=== PATIENT | male | born 2000 | race Caucasian/White ===

== ENCOUNTER 2024-05-14 15:56 | Emergency (ER) | payer SELFPAY ==
[2024-05-14 15:58] VITALS: BP 134/83
[2024-05-14] MEDS: TORADOL 30 MG IV (17:40)
[2024-05-14 17:42] VITALS: BP 115/72
[2024-05-14 17:43] VITALS: BMI 28.5
--- NOTE | 2024-05-14 17:57 | ED.GENMED ---
History of Present Illness
General
Chief Complaint: Chest Pain
Source: patient
Exam Limitations: none
Time Seen by Provider: 05/14/24 17:02
Nursing documentation reviewed up to this point in time: agreed with
History of Present Illness
History of Present Illness:
This is a 24-year-old male who has no significant past medical history save for occasional GERD. He takes no medicines on a daily basis.
He states this morning, shortly after waking up he noticed some right lateral chest pain that began around 9/10 AM. Initially mild in nature, somewhat of an ache, nonradiating and no other associated symptoms. Right lateral chest pain seems worse
with movement, mildly worsened with taking a deep breath.
He works for [employer], picking up and transporting individuals. While at work this afternoon he admits to lifting someone over 100 pounds and initially did not notice any increased right lateral chest pain but shortly after
lifting then noticed increase in the pain that now seems to wrap around to his right scapular region. He denies neck pain nor abdominal pain, no shoulder pain, no weakness or numbness. No coughing or shortness of breath. He has had no leg pain or
swelling, no nausea. No fever no chills. No recent URI nor GI illnesses.
He has resumed exercise, lifting a week and a half ago and was doing upper body lifting exercises 2 days ago without insightful injury.
No recent travel.
No history of similar episodes in the past.
He has not taken anything for discomfort.
Past History
Past History
ED Past Medical History: GERD
ED Past Surgical History: None
Social History
Tobacco: Smoker
Alcohol: Occasional
Drug: None
Personal: Single
Living: with family
Employment: Employed
Family History
Family History: Unable to obtain (Patient unsure as to his family history. He states his family is 'all messed up.' No definitive history of early CAD nor thromboembolism.)
Phy Exam
Physical Exam
Physical Exam:
GENERAL: 24-year-old male appears his stated age, bright and alert, pleasant, appears in no acute distress. Easily communicative. No respiratory distress. He is noted to intermittently burp. Patient states his burping is somewhat habitual and
more of an issue when he is nervous. Burping does not aggravate nor relieve his right sided chest discomfort.
EYE: anicteric
NECK: Supple, nontender, no meningismus, no significant adenopathy.
ENT: oral mucosa is moist. No rhinorrhea.
CARDIAC: Regular rate and rhythm. no murmur. No rub. Mild tenderness right lateral superior chest wall. There is no crepitus nor palpable bony abnormality. No tenderness to the posterior thorax, no tenderness to the scapular region nor shoulder.
LUNGS: no acute respiratory distress, mildly decreased breath sounds right superiorly, no rales or rhonchi no wheezing.
ABDOMEN: Soft, nondistended, without focal tenderness, no r/g, no cvat. normoactive BS.
NEUROLOGICAL: Alert and oriented x3, no focal neuro deficits. Gait is steady.
SKIN: Warm and dry, normal color, skin intact. No rash.
MUSCULOSKELETAL: No C/C/E. peripheral pulses are full and equal b/l. No palpable tenderness.
PSYCH: Normal and appropriate interaction.
Scores
Heart Score for Chest Pain Patients
STEMI patient?: Not applicable
Course
Orders/Labs/Results
Orders:
Orders
05/14/24 16:04
EKG [Electrocardiogram (*1)] Urgent
Reason for Study: Chest Pain
EKG- Treatment ONCE
05/14/24 17:32
Ketorolac [Toradol] 30 mg IV NOW STA
CR Chest - 2 Views Urgent
Comment:
Reason For Exam: acute, pleuritc R upper CP
05/14/24 18:12
Azithromycin [Zithromax] 500 mg PO NOW STA
Vital Signs
Initial and Last Documented VS:
Initial Vital Signs
Temp Pulse Resp BP Pulse Ox
98.2 F 91 18 134/83 99
05/14/24 15:58 05/14/24 15:58 05/14/24 15:58 05/14/24 15:58 05/14/24 15:58
Last Documented Vital Signs
Temp Pulse Resp BP Pulse Ox
98.2 F 84 19 136/75 99
05/14/24 15:58 05/14/24 18:15 05/14/24 18:15 05/14/24 18:00 05/14/24 15:58
MDM/Problems Addressed
Differential Diagnosis Includes:
Patient presents with acute right-sided pleuritic type pain.
He has recently resumed exercise, lifting along with heavy lifting on a near daily basis at work.
Although no insightful injury, history and exam appears most consistent with musculoskeletal type pain. Other consideration is pleurisy, pneumothorax, pneumonia.
He has no known risk factors for thromboembolism nor CAD. Nothing in history nor exam to suspect pericarditis.
He does have history of GERD generally well-controlled and current right-sided chest pain is admittedly quite different from his episodes of GERD.
Abdominal exam is unremarkable, nontender, nothing to suggest biliary colic/intra-abdominal pathology.
EKG shows sinus arrhythmia otherwise unremarkable.
Will give an IV dose of Toradol and will check chest x-ray.
*Radiology
Radiology exam reviewed: radiology read reviewed (Chest x-ray shows patchy/linear infiltrate right upper lobe. No pneumothorax.)
*Pulse Oximetry
Patient hypoxic: no
*EKG
Interpreted by ED Provider?: Yes
Comparison EKG: no comparison EKG present
Rate: normal
Rhythm: sinus arrhythmia
[place]: normal axis
Interval: normal interval
QRS Pattern: normal QRS
Ischemia: no ischemia
*Copy Reader Interpretation
Rate: normal
Interpretation: normal
Rhythm: sinus arrhythmia
*Critical Care Note
Total Time (30-74mins, 75-104mins- exclusive of procedures): Not Applicable
Update Note
Update Note:
05/14/2024 1825 PM
Patient feeling improved after IV Toradol.
Chest x-ray shows focal infiltrate right upper lobe. No pneumothorax.
He does admit to feeling somewhat fatigued over the past week or 2 but has not had a cough, nor fever.
Will treat community-acquired pneumonia/walking pneumonia with a course of Zithromax.
Recommend NSAIDs or Tylenol as needed for discomfort.
Discussed importance of remaining well-hydrated on a daily basis.
Patient has been encouraged to discontinue cigarettes.
He does not have a primary care physician and currently lacks healthcare coverage. He attempted to sign up for health insurance but due to his income, insurance premium was approximately $600 a month.
Due to his current income he is not a candidate for our free clinic but will refer to our family practice clinic and recommend he follow-up/discuss payment plan if offered. Encouraged to follow-up especially if chest pain does not resolve with
course of antibiotic.
Return precautions discussed.
ED Attending Note
-
Portions of this chart may have been created with voice recognition software.� Occasional wrong word or��sound alike� substitutions may have occurred due to the inherent limitations of voice recognition software.
Discharge Plan
Departure
Patient Disposition: Home (Routine Discharge)
Date of Disposition: 05/14/24
Time of Disposition: 18:27
Patient with high blood pressure during this ER visit?: No
Condition: Good
Discharge Problem:
Community acquired pneumonia, Right-sided chest pain
Instructions: Community-acquired pneumonia in adults, Quitting Smoking ED
Prescriptions:
New
azithromycin [Zithromax] 500 mg tablet
500 mg PO DAILY Qty: 2 0RF
Referrals:
[facility] [Provider Group] - Call in 1-3 days for appt
Interventions
Interventions:
*Risk Screen - Suicide Last Done: 05/14/24 15:58
*General Assessment Last Done: 05/14/24 15:58
*Neglect/Abuse Screening Last Done: 05/14/24 15:58
*ED COVID-19 Vaccine History Last Done: 05/14/24 15:58
ED- Cardiac Assessment Last Done: 05/14/24 17:21
Discharge Date and Time
Print Language: SAUDI ARABIAN
[2024-05-14 18:00] VITALS: BP 136/75
[2024-05-14] MEDS: ZITHROMAX 500 MG PO (18:21)
== END 2024-05-14 18:45 | disposition home or self-care (01) ==
LOC: EMR 15:56
PROVIDERS: EMERGENCY PHYSICIAN Emergency Medicine
DX: J18.9 Pneumonia, unspecified organism (principal); K21.9 Gastro-esophageal reflux disease without esophagitis; F17.200 Nicotine dependence, unspecified, uncomplicated; I48.91 Unspecified atrial fibrillation
CPT/HCPCS: 99283; 96374; 71046; 93005

== ENCOUNTER 2024-11-10 22:59 | Emergency (ER) | payer SELFPAY ==
[2024-11-10 23:01] VITALS: BP 146/75
[2024-11-10 23:16] LABS: Urine Albumin Negative (Neg - Trace); Urine Bilirubin Negative (Negative); Urine Character Clear (Clear); Urine Color Yellow; Urine Glucose Negative (Negative); Urine Ketone Negative (Negative); Urine Leukocyte 2+ (Negative); Urine Nitrite Negative (Negative); Urine Occult Blood Negative (Negative); Urine Urobilinogen Negative (Neg - 1+)
[2024-11-10 23:28] LABS: Urine Squamous Cell 0-2 /LPF (Few)
[2024-11-10 23:29] LABS: Urine Red Blood Cell 0-2 /HPF (0-2); Urine White Cell 30-40 /HPF (0-5)
[2024-11-10 23:30] LABS: Urine Bacteria Few (Negative)
[2024-11-10 23:32] LABS: Urine Yeast Few (Negative)
[2024-11-11 00:51] LABS: Glucose - Point of Care 106 mg/dl (70-99)
[2024-11-11] MEDS: OMNICEF 300 MG PO (00:53)
--- NOTE | 2024-11-11 01:04 | ED.GENMED ---
History of Present Illness
General
Chief Complaint: Flank Pain
Source: patient
Exam Limitations: none
Time Seen by Provider: 11/11/24 00:09
Nursing documentation reviewed up to this point in time: agreed with
History of Present Illness
History of Present Illness:
24-year-old male presenting to the emergency department today with concerns of intermittent urinary symptoms over the past month or so was treated with an antibiotic, Keflex a few weeks ago after getting an online assessment. Urine was never tested
at the time. Seem to have some improvement of symptoms at the time. Has had intermittent flank pain but denies any currently or over the last few days. No fevers no nausea vomiting. Did notice some burning with his urination today.
Past History
Past History
ED Past Medical History: GERD
ED Past Surgical History: None
Social History
Tobacco: Smoker
Alcohol: Occasional
Drug: None
Personal: Single
Living: with family
Employment: Employed
Family History
Family History: Unable to obtain (Patient unsure as to his family history. He states his family is 'all messed up.' No definitive history of early CAD nor thromboembolism.)
Review of Systems
Review of Systems
Allergies reviewed?: Yes
All Other Systems: ROS reviewed and negative except as documented in HPI and ROS
Phy Exam
Physical Exam
Physical Exam:
GENERAL: Alert , in no apparent distress
EYE: pupils equal and reactive
NECK: Supple, no significant adenopathy.
ENT: o/p clr, mmm.
CARDIAC: Regular rate and rhythm .
LUNGS: Clear breath sounds bilaterally, no acute respiratory distress, no wheezes/rales/rhonchi
ABDOMEN: Soft, without focal tenderness, no r/g, no cvat
NEUROLOGICAL: Alert and oriented, no focal neuro deficits
SKIN: Warm and dry, skin intact.
MUSCULOSKELETAL: No edema, well perfused.
PSYCH: Normal and appropriate interaction.
Course
Orders/Labs/Results
Orders:
Orders
11/10/24 23:11
Urinalysis Reflex To Culture Urgent
Date Specimen was Collected: 11/10/24
Time Specimen was Collected: 23:09
Urine Microscopic Reflex Cult Urgent
Urine Culture Urgent
JERZY Source: U
Specimen Description:
Date Specimen was Collected: 11/10/24
Time Specimen was Collected: 23:09
11/11/24 00:49
Add On- LAB Urgent
Tests Added?: GC/chlamydia PCR
Bedside Glucose- Treatment ONCE
Cefdinir [Omnicef] 300 mg PO NOW STA
Abnormal Lab Results
11/10/24 11/11/24
23:11 00:50
Leukocyte Esterase Rfl 2+ A
(Negative)
Urine WBC (Reflex) 30-40 A /HPF
(0-5)
Urine Bacteria (Reflex) Few A
(Negative)
Urine Yeast Few A
(Negative)
POC Glucose 106 H mg/dl
(70-99)
Vital Signs
Initial and Last Documented VS:
Initial Vital Signs
Temp Pulse Resp BP Pulse Ox
98.5 F 89 16 146/75 98
11/10/24 23:01 11/10/24 23:01 11/10/24 23:01 11/10/24 23:01 11/10/24 23:01
Last Documented Vital Signs
Temp Pulse Resp BP Pulse Ox
98.5 F 70 18 107/52 98
11/10/24 23:01 11/11/24 01:18 11/11/24 01:18 11/11/24 01:18 11/11/24 01:18
MDM/Problems Addressed
MDM/Problems Addressed:
24-year-old male presenting to the emergency department with intermittent urinary symptoms. On arrival vital signs are normal. No pain at this point no flank pain no reproducible abdominal pain. Urine appears to be consistent with UTI was treated
with antibiotic urine culture normal blood glucose. STD testing was performed he claims that this is very unlikely with his sexual history. Otherwise stable for outpatient follow-up. Advised for close outpatient follow-up due to recurrent UTI.
Return precautions given.
*Critical Care Note
Total Time (30-74mins, 75-104mins- exclusive of procedures): Not Applicable
ED Attending Note
-
Portions of this chart may have been created with voice recognition software.� Occasional wrong word or��sound alike� substitutions may have occurred due to the inherent limitations of voice recognition software.
Discharge Plan
Departure
Patient Disposition: Home (Routine Discharge)
Date of Disposition: 11/11/24
Time of Disposition: 01:04
Patient with high blood pressure during this ER visit?: No
Condition: Good
Covid-19: Not Applicable
Discharge Problem:
Acute UTI
Instructions: Urinary tract infection in adults - ED discharge instructions
Prescriptions:
New
cefpodoxime 200 mg tablet
200 mg PO BID 7 Days Qty: 14 0RF
No Action
azithromycin [Zithromax] 500 mg tablet
500 mg PO DAILY Qty: 2 0RF
Referrals:
Dayo Shelby MD [Active] -
Byron Hahn MD [Active] -
Mynor Mckeon MD [Active] - Follow up in 5-7 days
NONE,* [Family Provider] -
Activity Restrictions/Additional Instructions:
You came to the emergency department today with concerns of intermittent urinary symptoms. Here you had what appears to be consistent with a UTI. Please take the prescribed antibiotics and follow-up closely as an outpatient for reassessment.
Return for any worsening, new or concerning symptoms.
Interventions
Interventions:
*Risk Screen - Suicide Last Done: 11/10/24 23:01
*Nursing Disposition Last Done: 11/11/24 01:18
ED-Male Genitourinary Assessment Last Done: 11/11/24 00:51
Discharge Date and Time
Discharge Date/Time: 11/11/24 01:18
Print Language: LATVIAN
[2024-11-11 01:18] VITALS: BP 107/52
== END 2024-11-11 01:18 | disposition home or self-care (01) ==
LOC: EMR 22:59
PROVIDERS: EMERGENCY PHYSICIAN Student in an Organized Health Care Education/Training Program
DX: N39.0 Urinary tract infection, site not specified (principal); F17.200 Nicotine dependence, unspecified, uncomplicated
CPT/HCPCS: 99283; 81003; 81015; 82962; 87086; 87491; 87591

== ENCOUNTER 2025-03-26 15:39 | Emergency (ER) | payer SELFPAY ==
[2025-03-26 15:42] VITALS: BP 123/80
[2025-03-26 16:04] LABS: Urine Character Clear (Clear)
[2025-03-26 16:14] LABS: Urine Squamous Cell 0-2 /LPF (Few)
[2025-03-26 16:15] LABS: Urine Red Blood Cell 0-2 /HPF (0-2); Urine White Cell 0-2 /HPF (0-5)
--- NOTE | 2025-03-26 17:04 | ED.GENMED ---
Addendum entered and electronically signed by Yenny Cedillo PA-C 03/28/25 13:22:
03/28/25: Urine testing positive for chlamydia. Patient called and notified of result via phone. He was discharged on a course of doxycycline which he reports compliance with. Patient advised to notify all partners and have retesting done in 3
months.
Original Note:
History of Present Illness
General
Chief Complaint: Male Genito-Urinary Symptoms
Source: patient
Exam Limitations: none
Time Seen by Provider: 03/26/25 16:50
Nursing documentation reviewed up to this point in time: agreed with
History of Present Illness
History of Present Illness:
Patient is a healthy 25-year-old male who presents to the emergency department with complaints of dysuria over the past 2 weeks. Patient reports intermittent discomfort with urination as well as noticing 'a drop of pus' in his urine in the
mornings. He occasionally has pain in his lower back however is currently asymptomatic. He states symptoms are not constant and he only notices them when he 'waits too long to urinate '. 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
bathroom as frequently as he would like.
He denies any associated fever, chills, abdominal pain, nausea/vomiting. No hematuria. No testicular swelling or pain. Patient states he has not been sexually active in the past 1 to 2 months however has not had any recent STI testing.
Patient states the symptoms seem very consistent with his past UTIs. He had a similar episode in 11/27 which was treated with a course of oral antibiotics and symptoms resolved. He does report a history of an STI a few years ago which also had
similar presenting symptoms however were much more severe.
Past History
Past History
ED Past Medical History: GERD
ED Past Surgical History: None
Social History
Tobacco: Smoker
Alcohol: Occasional
Drug: None
Personal: Single
Living: with family
Employment: Employed
Family History
Family History: Unable to obtain (Patient unsure as to his family history. He states his family is 'all messed up.' No definitive history of early CAD nor thromboembolism.)
Review of Systems
Review of Systems
Allergies reviewed?: Yes
All Other Systems: ROS reviewed and negative except as documented in HPI and ROS
Phy Exam
Physical Exam
Physical Exam:
Vitals: Tachycardic on arrival, otherwise vital signs stable. Afebrile
General: Patient is very well-appearing, nontoxic. In no distress
Skin: Warm and dry, no rashes or lesions
Head: Normocephalic, atraumatic
Eyes: Sclera nonicteric.
Throat: Protecting airway
Neck: Normal ROM, no cervical spine tenderness, no meningismus
Cardiac: Regular rate and rhythm, no murmurs.
Pulm: Normal respiratory effort, no wheezes, rales, rhonchi heard on exam
Abdomen: Abdomen soft. No reproducible tenderness. No rebound tenderness or guarding. No CVA tenderness
: Deferred by patient
Extremities: No evidence of cyanosis or edema
Neuro: AAOx3. Grossly intact
Psychiatric: Normal affect.
Course
Orders/Labs/Results
Orders:
Orders
03/26/25 15:51
Urinalysis Reflex To Culture Urgent
Date Specimen was Collected: 03/26/25
Time Specimen was Collected: 15:44
Urine Microscopic Reflex Cult Urgent
Chlamydia/GC by PCR Urgent
JERZY Source: U
Specimen Description:
Source:: URINE
Date Specimen was Collected: 03/26/25
Time Specimen was Collected: 15:44
Comment: Add on by Suzie Mayen
Urine Culture Urgent
JERZY Source: U
Specimen Description:
Date Specimen was Collected: 03/26/25
Time Specimen was Collected: 15:44
03/26/25 17:02
Add On - Microbiology Urgent
Tests Added?: urine gc/chlamydia
0.9% Sodium Chloride 1000 ml [Nss] 1,000 ml IV BOLUS
03/26/25 17:21
Complete Blood Count/With Diff Urgent
Comprehensive Metabolic Panel Urgent
03/26/25 18:07
Ceftriaxone Sodium [Rocephin] 500 mg IM NOW STA
Doxycycline [Vibramycin] 100 mg PO NOW STA
03/26/25 18:48
Sterile Water [Sterile Water For Injection] 10 ml .ROUTE .[facility]
Abnormal Lab Results
03/26/25 03/26/25
15:51 17:21
WBC 4.6 L 10^3/uL
(4.8-10.8)
Leukocyte Esterase Rfl 1+ A
(Negative)
03/26/25 17:21
03/26/25 17:21
Vital Signs
Initial and Last Documented VS:
Initial Vital Signs
Temp Pulse Resp BP Pulse Ox
98.4 F 113 16 123/80 98
03/26/25 15:42 03/26/25 15:42 03/26/25 15:42 03/26/25 15:42 03/26/25 15:42
Last Documented Vital Signs
Temp Pulse Resp BP Pulse Ox
98.4 F 78 14 126/74 98
03/26/25 15:42 03/26/25 19:03 03/26/25 19:03 03/26/25 19:03 03/26/25 19:03
MDM/Problems Addressed
Differential Diagnosis Includes:
Not limited to: acute dehydration, UTI, pyelonephritis, sexually transmitted infection, renal colic, etc
MDM/Problems Addressed:
25-year-old male with intermittent dysuria and urethral discharge for the past two weeks. No associated fevers, abdominal pain, nausea/vomiting, hematuria. Patient has had a few UTIs in the past year. Patient has stable vital signs on arrival.
Physical exam as above.
A UA was obtained prior to my evaluation without any clear indication of UTI, only 1+ leukocyte esterase w/ few WBC and nitrate negative. No red blood cells to indicate possible kidney stone. I did obtain basic lab work without any acute
abnormalities.
Patient is very well appearing and nontoxic. No current abdominal or flank pain to indicate obstructing renal stone. However � given symptoms of urethritis and history of purulent discharge � will add on GC/chlamydia test to urine sample and plan to
treat patient empirically. IM Rocephin given in ED and prescription for doxycycline sent to the pharmacy.
Advised patient to stay well hydrated and discussed very strict return precautions. Patient stable for discharge home.
Chronic conditions affecting care:
N/A
Acute Exacerbation and/or Progression of Chronic Illness:
N/A
*Pulse Oximetry
SaO2: 98
Oxygen Mode of Delivery: Room air
Patient hypoxic: no
*EKG
Interpreted by ED Provider?: NA
*Soda Fountain Operator Interpretation
Rate: Soda Fountain Operator- N/A
*Critical Care Note
Total Time (30-74mins, 75-104mins- exclusive of procedures): Not Applicable
ED Attending Note
-
Portions of this chart may have been created with voice recognition software.� Occasional wrong word or��sound alike� substitutions may have occurred due to the inherent limitations of voice recognition software.
Discharge Plan
Departure
Patient Disposition: Home (Routine Discharge)
Date of Disposition: 03/26/25
Time of Disposition: 18:09
Patient with high blood pressure during this ER visit?: No
Condition: Good
Discharge Problem:
Urethritis
Instructions: Urethritis (DC)
Prescriptions:
New
doxycycline monohydrate 100 mg capsule
100 mg PO BID 7 Days Qty: 14 0RF
Referrals:
[facility] - Next open appointment
Mynor Mckeon MD [Active, Urology]
UNKNOWN - PT DOES,NOT KNOW [Family Provider]
Activity Restrictions/Additional Instructions:
RETURN TO THE EMERGENCY DEPARTMENT ANY FEVER, CHILLS, DIFFICULTIES URINATING, SIGNS OF SEVERE DEHYDRATION, SEVERE ABDOMINAL/BACK PAIN, WORSENING IN CURRENT SYMPTOMS, OR ANY OTHER CONCERNS
- As discussed�your lab work and urinalysis showed no acute abnormalities. Your STI testing has not yet resulted however given your symptoms�empiric treatment was started to cover both gonorrhea and chlamydia.
- Please take antibiotics as directed. Be diligent with sun protection while on this medication.
- It is important stay well-hydrated.
- Follow-up with your primary care provider and urology for further evaluation/management given recurrent episodes of urethritis.
Monitor your symptoms closely and return to the emergency department with any acute worsening/new symptoms or any other concerns
Interventions
Interventions:
*Risk Screen - Suicide Last Done: 03/26/25 15:42
*General Assessment Last Done: 03/26/25 19:03
*Neglect/Abuse Screening Last Done: 03/26/25 15:42
*ED- Fall Risk Assessment Last Done: 03/26/25 19:03
*ED COVID-19 Vaccine History Last Done: 03/26/25 19:03
*Nursing Disposition Last Done: 03/26/25 19:03
ED-Male Genitourinary Assessment Last Done: 03/26/25 19:02
Discharge Date and Time
Discharge Date/Time: 03/26/25 19:04
Print Language: YI
[2025-03-26] MEDS: NSS 1000 IV (17:21)
[2025-03-26 17:28] LABS: Hematocrit 43.4 % (39.0-52.0); Hemoglobin 15.2 g/dL (13.0-18.0); Mean Corp Hgb Conc. 35.0 g/dL (33.0-37.0); Mean Corpuscular Volume 85.6 fL (80.0-94.0); Nucleated Red Blood Cells % 0 % (-); Platelet Count 173 10^3/uL (130-400); Red Cell Dist. Width 12.5 % (11.5-14.5)
[2025-03-26 17:47] LABS: ALT (SGPT) 18 U/L (0-50); AST (SGOT) 17 U/L (17-59); Albumin 4.7 g/dl (3.5-5.0); Alkaline Phosphatase 38 U/L (38-126); Blood Urea Nitrogen 15 mg/dl (9-20); Calcium 9.7 mg/dl (8.4-10.2); Carbon Dioxide 29 mmol/L (22-30); Chloride 105 mmol/L (98-107); Glucose 81 mg/dl (70-99); Potassium 4.2 mmol/L (3.5-5.1); Sodium 139 mmol/L (135-145); Total Protein 6.9 g/dl (6.3-8.2); eGFR > 60.00
[2025-03-26] MEDS: VIBRAMYCIN 100 MG PO (18:50)
[2025-03-26] MEDS: ROCEPHIN 500 MG IM (18:51)
[2025-03-26 19:03] VITALS: BP 126/74
== END 2025-03-26 19:04 | disposition home or self-care (01) ==
LOC: EMR 15:39
PROVIDERS: Physician Assistant; Student in an Organized Health Care Education/Training Program; EMERGENCY PHYSICIAN Emergency Medicine
DX: N34.2 Other urethritis (principal); F17.200 Nicotine dependence, unspecified, uncomplicated
CPT/HCPCS: 96372; 99284; 96360; 80053; 81003; 81015; 85025; 87086; 87491; 87591